=== PATIENT | male | born 1985 | race American Indian/Alaskan Native ===

== ENCOUNTER 2021-02-02 21:16 | Emergency (ER) | payer SELFPAY ==
[2021-02-02] MEDS ORDERED: SODIUM CHLORIDE 0.9% 1000 ML 1,000 ML IV ONE (22:14)
--- NOTE | 2021-02-02 22:14 | Emergency Department Report ---
ED N/V/D HPI - General Chief complaint: Nausea/Vomiting/Diarrhea Stated complaint: POSSIBLE FOOD POISONING PUI?: No Time Seen by Provider: 02/02/21 21:54 Source: patient Mode of arrival: Ambulatory Limitations: No Limitations - History of Present Illness Initial comments: 36-year-old male presents to the ER today with complaints of black stools and black tongue. Patient states that he has been sick with diarrhea for the past 2 days. He states that he is concerned that he may have had food poisoning. He states that his symptoms started after he cooked tuna and ate noodles at home the night before. He states that the food did not taste bad or smell bad. He states that he has been having diarrhea every day for the past 2 days and today he noticed that his diarrhea was black. He also has been vomiting, majority of the vomiting was yesterday and he states that at the time the emesis was mainly clear. He has not had any vomiting today, but did notice that his tongue was black. He does admit that he had Pepto-Bismol yesterday. He denies any associate abdominal pain, fever, chills, chest pain, shortness of breath or any additional symptoms. He denies any ill contacts or recent travel. He denies any recent antibiotic use. He denies any significant past medical history. MD complaint: nausea, vomiting, diarrhea -: Gradual, days(s) (2) - Related Data Previous Rx's Medication Instructions Recorded Last Taken Type Ondansetron [Zofran Odt] 4 mg PO Q8HR #12 tab.rapdis 02/02/21 Unknown Rx Allergies Allergy/AdvReac Type Severity Reaction Status Date / Time No Known Allergies Allergy Verified 02/02/21 23:09 ED Review of Systems ROS: Stated complaint: POSSIBLE FOOD POISONING Other details as noted in HPI Comment: All other systems reviewed and negative Constitutional: denies: chills, fever Eyes: denies: eye pain, eye discharge, vision change ENT: denies: ear pain, throat pain, dental pain, hearing loss, epistaxis Respiratory: denies: cough, shortness of breath, SOB with exertion, SOB at rest, wheezing Cardiovascular: denies: chest pain, palpitations Gastrointestinal: nausea, vomiting, diarrhea, melena. denies: abdominal pain, constipation, hematemesis, hematochezia Genitourinary: denies: urgency, dysuria, frequency, hematuria, discharge, testicular pain, testicular mass Musculoskeletal: denies: back pain, joint swelling, arthralgia Skin: denies: rash, lesions Neurological: denies: headache, weakness, paresthesias Psychiatric: denies: anxiety, depression, auditory hallucinations, visual hallucinations, homicidal thoughts, suicidal thoughts Hematological/Lymphatic: denies: easy bleeding, easy bruising ED Past Medical Hx - Past Medical History Previous Medical History?: No - Surgical History Past Surgical History?: No - Medications Home Medications: Home Medications Medication Instructions Recorded Confirmed Last Taken Type Ondansetron [Zofran Odt] 4 mg PO Q8HR #12 tab.rapdis 02/02/21 Unknown Rx ED Physical Exam - General Limitations: No Limitations General appearance: alert, in no apparent distress - Head Head exam: Present: atraumatic, normocephalic, normal inspection - Eye Eye exam: Present: normal appearance, PERRL, EOMI Pupils: Present: normal accommodation - ENT ENT exam: Present: normal exam, mucous membranes moist, other (very mild faint black exudate on the tongue) - Neck Neck exam: Present: normal inspection, full ROM - Respiratory Respiratory exam: Present: normal lung sounds bilaterally. Absent: respiratory distress, wheezes, rales, rhonchi - Cardiovascular Cardiovascular Exam: Present: regular rate, normal rhythm, normal heart sounds - Rectal Rectal exam: Present: normal inspection, normal rectal tone, heme (-) stool, black stool, other ([employer] (Juan Daniel present) ). Absent: fecal impaction, hemorrhoids, mass, tenderness - Neurological Exam Neurological exam: Present: alert, oriented X3, CN II-XII intact, normal gait - Psychiatric Psychiatric exam: Present: normal affect, normal mood - Skin Skin exam: Present: intact ED Course Vital Signs 02/02/21 21:45 Temperature 98.4 F Pulse Rate 87 Respiratory 18 Rate Blood Pressure 152/102 O2 Sat by Pulse 100 Oximetry ED Medical Decision Making - Lab Data Result diagrams: 02/02/21 22:21 02/02/21 22:21 - Medical Decision Making Labs reviewed --patient H&H is stable. White count normal. CMP shows mild hyponatremia with sodium of 132 otherwise unremarkable. Patient did get some IV fluids during stay. Hemoccult was negative. The black discoloration to patient's tongue and on his stools likely secondary to the Pepto-Bismol. Patient has no abdominal pain and he has a soft nontender abdomen. He is not toxic or or ill-appearing and is not in any significant distress. He is neurologically intact. He is currently hemodynamically stable. There is no indication for any additional testing or admission at this time. Discussed all lab results with patient. Discussed suspected diagnosis and treatment plan with patient. Patient expressed understanding of all instructions and agree with plan. Patient stable at time of discharge - Differential Diagnosis Viral gastroenteritis, GI bleed, food poisoning, dehydration Critical care attestation.: If time is entered above; I have spent that time in minutes in the direct care of this critically ill patient, excluding procedure time. ED Disposition Clinical Impression: Nausea vomiting and diarrhea Disposition: 01 HOME / SELF CARE / HOMELESS Is pt being admited?: No Does the pt Need Aspirin: No Condition: Stable Instructions: Diarrhea, Adult, Food Choices to Help Relieve Diarrhea, Adult, Nausea and Vomiting, Adult, [id number] Additional Instructions: Take the zofran as prescribed to help with nausea and vomiting. You can take immodium from over the counter to help with diarrhea. I recommend also following the food choices listed on your d/c instructions to help with diarrhea. Drink plenty of fluids to maintain hydration. The black stools and black tongue were likely secondary to peptobismol. You can continue taking the Pepto-Bismol to help with nausea vomiting and diarrhea, but just be aware it can turn your stools black. Follow-up closely with your PCP. Return to the ER if your symptoms changes or worsens in any way Prescriptions: Ondansetron [Zofran Odt] 4 mg PO Q8HR #12 tab.rapdis Referrals: PRIMARY CARE, [Primary Care Provider] - 3-5 Days Time of Disposition: 23:49
[2021-02-02 22:56] LABS: Basophils % (Auto) 0.2 % (0.0-1.8); Eosinophils % (Auto) 0.1 % (0.0-4.3); Hematocrit 47.8 % (35.5-45.6); Hemoglobin 16.1 gm/dl (11.8-15.2); Lymphocytes # (Auto) 1.5 K/mm3 (1.2-5.4); Lymphocytes % (Auto) 16.9 % (13.4-35.0); Mean Corpuscular HGB Conc 34 % (32-34); Mean Corpuscular Volume 91 fl (84-94); Monocytes # (Auto) 0.6 K/mm3 (0.0-0.8); Monocytes % (Auto) 7.1 % (0.0-7.3); Platelet Count 232 K/mm3 (140-440); Red Blood Count 5.25 M/mm3 (3.65-5.03); Red Cell Distribution Width 12.9 % (13.2-15.2)
[2021-02-02 23:23] LABS: Alanine Aminotransferase 37 units/L (7-56); Albumin 4.8 g/dL (3.9-5); BUN/Creatinine Ratio 11; Blood Urea Nitrogen 11 mg/dL (9-20); Calcium 9.4 mg/dL (8.4-10.2); Hemolysis Index 18
[2021-02-03 01:16] VITALS: BP 149/102
== END 2021-02-03 00:38 | disposition home or self-care (01) ==
LOC: ED 21:16
DX: R11.2 Nausea with vomiting, unspecified (principal); R19.7 Diarrhea, unspecified
CPT/HCPCS: 36415; 80053; 82271; 83690; 85025; 96360; 99283; J7030